=== PATIENT | male | born 1945 | race Caucasian/White ===

== ENCOUNTER → 2019-10-14 09:40 | Outpatient (BNVA) | payer OTHER, SELFPAY | PROVIDERS: Referring Provider Dermatology; Visit Provider Dermatology | DX: L30.0 Nummular dermatitis (principal); L57.0 Actinic keratosis; D23.9 Other benign neoplasm of skin, unspecified; L82.1 Other seborrheic keratosis; B35.1 Tinea unguium; Z12.83 Encounter for screening for malignant neoplasm of skin | CPT/HCPCS: 17000; 17003; 99203; 99204 ==

== ENCOUNTER → 2021-07-21 09:44 | Outpatient (BNVA) | payer MEDICARE, SELFPAY | PROVIDERS: PCP Family Medicine; Visit Provider Surgery | DX: Z86.010 Personal history of colon polyps (principal) | CPT/HCPCS: 99203 ==

== ENCOUNTER 2021-10-28 05:30 | Day surgery (SDC) | payer MEDICARE, SELFPAY ==
[2021-10-26 11:26] VITALS: BMI 29.2
[2021-10-28 06:18] VITALS: BP 161/89; PULSE 67; RESP 18; TEMP 36.1; O2SAT 99
[2021-10-28] MEDS: sodium chloride 0.9% 1,000 ML 30 ML IV (06:22)
--- NOTE | 2021-10-28 06:30 | W.PM.OPSFHP ---
Same Day Surgery H&P Indication for Procedure/HPI DATE OF PROCEDURE: October 28, 2021 CHIEF COMPLAINT/INDICATIONFOR SURGICAL PROCEDURE: Colon polyps PREOP DIAGNOSIS: History of colon polyps PLANNED PROCEDURE: Operation Date: 10/28/21 07:30 Proposed Procedures p Colonoscopy 10257/Z12.11(Not Applicable) - Av Balderrama MD 07/21/2021 This is a pleasant 75 years old gentleman referred to my practice with history of colon polyps.,? Patient denies bleeding per rectum or weight loss yet reports history of constipation.? He is referred to my practice for surveillance colonoscopy. 10/28/2021 Patient comes today for surveillance colonoscopy ROS All systems have been reviewed negative except as for the above or per problem list. Medications/Allergies* Home Medications Medication Instructions Recorded Confirmed Type amitriptyline 10 mg tablet 20 mg PO DAILY 10/14/19 10/28/21 History bupropion HCl 150 mg 24 hr tablet, 150 mg PO QAM 10/14/19 10/28/21 History extended release (Wellbutrin XL) cholecalciferol (vitamin D3) 50 50 mcg PO DAILY 10/14/19 10/28/21 History mcg (2,000 unit) capsule (Vitamin D3) fluticasone propionate 110 1 puff inhalation BID PRN 10/14/19 10/28/21 History mcg/actuation HFA aerosol inhaler Shortness Of Breath lovastatin 40 mg tablet 40 mg PO DAILY 10/14/19 10/28/21 History potassium chloride 8 mEq 8 meq PO DAILY 10/14/19 10/28/21 History capsule,extended release triamterene 37.5 1 cap PO DAILY 10/14/19 10/28/21 History mg-hydrochlorothiazide 25 mg capsule Allergies/Adverse Reactions Allergy/AdvReac Type Severity Reaction Status Date / Time nitrofurantoin Allergy swelling Verified 10/28/21 06:31 [From Macrodantin] Sulfa (Sulfonamide Allergy ADR-Nausea Verified 10/28/21 06:31 Antibiotics) Current Medications: Generic Name Dose Route Start Last Admin Trade Name Freq PRN Reason Stop Dose Admin Sodium Chloride 1,000 mls @ 30 mls/hr 10/28/21 06:00 10/28/21 06:22 Sodium Chloride 0.9% IV 10/29/21 05:59 30 mls/hr .Q24H DEWAYNE Administration Pertinent History/Comorbid Conditions* Medical History (Updated 07/22/21 @ 16:52 by Av Balderrama MD) Hypertension Family History (Updated 10/14/19 @ 10:15 by Sania Odell LPN) Diabetes CAD (coronary artery disease) Hypertension Denies family history of Cancer Social History Smoking and tobacco status: never smoked Alcohol intake: never History of recent travel: Yes ([facility]) Pertinent Exam Findings alert, oriented x 3, regular rate & rhythm and procedure specific exam findings (Abdominal examination nontender nondistended soft) Recommendations Surgery/Procedure today (Colonoscopy with possible biopsy) Coding Level of Care Code Acute Manager Convention for Elvis Cruz
--- NOTE | 2021-10-28 07:06 | ANES.PREANE2 ---
Pre-Anesthetic Assessment Height/Weight: Height 1.63 m Weight 77.111 kg Temp Pulse Resp BP Pulse Ox O2 Del Method 97.0 F L 67 18 161/89 99 10/28/21 06:18 10/28/21 06:18 10/28/21 06:18 10/28/21 06:18 10/28/21 06:18 10/28/21 06:18 Preop Diagnosis: History of colon polyps Operation Date: 10/28/21 07:30 Proposed Procedures p Colonoscopy 99640/Z12.11(Not Applicable) - Av Balderrama MD Familial anesthetic complications: none Was Beta Natividad taken within 24 hours: N/A Was Clonidine taken within 24 hours: N/A Last intake: Intake Last Liquid Date 10/27/21 Last Liquid Time 23:30 Last Solid Date 10/26/21 Last Solid Time 18:30 Social No alcohol and No tobacco Exam alert, oriented x 3, clear to auscultation bilaterally and regular rate & rhythm Airway Submandibular: within normal limits Cervical ROM: within normal limits Mallampati: Class II Dentition: full Pulmonary None reported CV/HEM Hypertension and Murmur None reported Hepatic None reported GI None reported Metabolic Hyperlipidemia [facility] Osteoarthritis/DJD Neuropsych Depression Anesthetic Plan ASA status: 2 Anesthesia: MAC Risk of > 500 ml blood loss (7ml/kg in children): No Medications/Allergies Home Medications Medication Instructions Recorded Confirmed Last Taken Type amitriptyline 10 mg tablet 20 mg PO DAILY 10/14/19 10/28/21 10/27/21 History bupropion HCl 150 mg 24 hr tablet, 150 mg PO QAM 10/14/19 10/28/21 10/27/21 History extended release (Wellbutrin XL) cholecalciferol (vitamin D3) 50 50 mcg PO DAILY 10/14/19 10/28/21 10/27/21 History mcg (2,000 unit) capsule (Vitamin D3) fluticasone propionate 110 1 puff inhalation BID PRN 10/14/19 10/28/21 10/27/21 History mcg/actuation HFA aerosol inhaler Shortness Of Breath lovastatin 40 mg tablet 40 mg PO DAILY 10/14/19 10/28/21 10/27/21 History potassium chloride 8 mEq 8 meq PO DAILY 10/14/19 10/28/21 10/27/21 History capsule,extended release triamcinolone acetonide 0.1 % 1 applic topical BID #30 grams 10/14/19 10/28/21 10/27/21 Rx topical ointment triamterene 37.5 1 cap PO DAILY 10/14/19 10/28/21 10/28/21 History mg-hydrochlorothiazide 25 mg capsule Allergies Allergy/AdvReac Type Severity Reaction Status Date / Time nitrofurantoin Allergy swelling Verified 10/28/21 06:31 [From Macrodantin] Sulfa (Sulfonamide Allergy ADR-Nausea Verified 10/28/21 06:31 Antibiotics) Current Medications Generic Name Dose Route Start Last Admin Trade Name Freq PRN Reason Stop Dose Admin Sodium Chloride 1,000 mls @ 30 mls/hr 10/28/21 06:00 10/28/21 06:22 Sodium Chloride 0.9% IV 10/29/21 05:59 30 mls/hr .Q24H DEWAYNE Administration PFSH Anesthesia Medical History Hypertension Family History Other CAD (coronary artery disease) Diabetes Hypertension Denies family history of Cancer Social History Smoking and tobacco status: never smoked Alcohol intake: never History of recent travel: Yes ([facility]) Data Anesthesia Cardiac Studies: No Data to Display
[2021-10-28 07:44] VITALS: BP 192/82; PULSE 65; RESP 18; TEMP 36.1; O2SAT 100
--- NOTE | 2021-10-28 07:49 | ANE.PACU2 ---
Inpatient post-anesthesia follow up: Airway intact: Yes Vital signs: Temperature 97.0 F Pulse Rate 67 Respiratory Rate 18 Blood Pressure 161/89 Pulse Oximetry 99 Oxygen Delivery Me thod Room Air Oxygen Flow Rate Fraction of Inspir ed Oxygen Hydration adequate: Yes Nausea and vomiting: No Pain level: 1 Mental status: Baseline
[2021-10-28 08:09] VITALS: BP 156/89; PULSE 68; RESP 18; O2SAT 99
== END 2021-10-28 08:14 | disposition home or self-care (01) ==
PROVIDERS: PCP Family Medicine; Visit Provider Surgery
PROC: 0DJD8ZZ Inspection of Lower Intestinal Tract, Via Natural or Artificial Opening Endoscopic (ICD-10-PCS; CPT 45378; principal; 2021-10-28 07:30)
DX: Z12.11 Encounter for screening for malignant neoplasm of colon (principal); Z86.010 Personal history of colon polyps; I10 Essential (primary) hypertension; K63.89 Other specified diseases of intestine; K57.30 Diverticulosis of large intestine without perforation or abscess without bleeding; K63.5 Polyp of colon; E78.5 Hyperlipidemia, unspecified
CPT/HCPCS: 45380; 88305; J2704; J7030

== ENCOUNTER → 2021-11-11 13:48 | Outpatient (BNVA) | payer MEDICARE, SELFPAY | PROVIDERS: PCP Family Medicine; Visit Provider Surgery | DX: Z09 Encounter for follow-up examination after completed treatment for conditions other than malignant neoplasm (principal); K57.31 Diverticulosis of large intestine without perforation or abscess with bleeding | CPT/HCPCS: 99213 ==

== ENCOUNTER 2022-07-01 11:05 | Outpatient (CLI) | payer MEDICARE, SELFPAY ==
--- NOTE | 2022-07-01 11:26 | MM_ITS ---
WS: [id number] . BILATERAL SCREENING DIGITAL TOMOSYNTHESIS MAMMOGRAM WITH CAD HISTORY: SCREENING COMPARISON: 06/02/2020, and 01/17/2019 Bilateral CC and MLO views with tomosynthesis and synthetic mammography submitted. Computer aided det ection analyzed. Breast composition: There are scattered areas of fibroglandular density. No suspicious masses, microc alcifications or architectural distortion. Benign calcifications in each breast. MM/[place] [id number] IMPRESSION: BI-RADS: 2-Benign FOLLOW UP: 1 Year Follow-up
== END 2022-07-01 11:06 | disposition home or self-care (01) ==
LOC: RAD 11:10
PROVIDERS: PCP Family Medicine; Visit Provider Registered Nurse
DX: Z12.31 Encounter for screening mammogram for malignant neoplasm of breast (principal)
CPT/HCPCS: 77063; 77067